=== PATIENT | male | born 1975 | race Caucasian/White ===

== ENCOUNTER → 2023-10-19 06:26 | Day surgery (SDC) | payer BC, SELFPAY | LOC: GI 06:26 | PROVIDERS: ATTENDING PHYSICIAN Surgery | DX: Z12.11 Encounter for screening for malignant neoplasm of colon (principal); K63.5 Polyp of colon | CPT/HCPCS: 45380; 88305 ==

== ENCOUNTER 2023-12-02 04:22 | Observation (INO) | payer BC, SELFPAY ==
[2023-12-02] VITALS (18 sets, daily range): BP systolic 106–151; BP diastolic 67–97; BMI 30.2; BMI 30.1
--- NOTE | 2023-12-02 00:34 | ED.GENMED ---
History of Present Illness
General
Chief Complaint: Abdominal Pain
Source: patient
Exam Limitations: none
Time Seen by Provider: 12/02/23 00:26
Travel History
Have you had any contact with someone who has COVID-19?: No
Do you have any symptoms of coronavirus? Fever > 100 degrees, chills, cough, shortness of breath, sore throat, loss of taste or smell, muscle aches, or headache?: No
History of Present Illness
History of Present Illness:
This is a 48 year old male that comes in with c/o epigastric pain. States that he has had this pain in the past and it is like a spasm. States that this is the worse it has been. States that as a last resort he can use Paregoric but he did not take
this. states that his mother has the same thing. States that sometimes when he vomits this settled things down. State that he made himself vomiting that this seemed to make it worse this time. States that he just can't get comfortable. Denies any
fever, chills, chest pain, SOB, nausea, vomiting, diarrhea, headache, dizziness, urinary burning.
Past History
Past History
ED Past Medical History: None; Negative Asthma, HTN, Hypercholesterolemia or NIDDM
ED Past Surgical History: Urological (vasectomy)
Social History
Tobacco: Non-smoker
Alcohol: None
Drug: None
Personal:
Living: with family
Employment: Employed
Review of Systems
Review of Systems
All Other Systems: ROS reviewed and negative except as documented in HPI and ROS
Constitutional: Reports no symptoms; Denies fever or chills
EENT: Reports no symptoms
Respiratory: Reports no symptoms; Denies cough or trouble breathing
Cardiac: Reports no symptoms; Denies chest pain
ABD/GI: Reports abdominal pain; Denies nausea, vomiting or diarrhea
: Reports no symptoms; Denies dysuria, frequency or urgency
Musculoskeletal: Reports no symptoms
Skin: Reports no symptoms
Neurological: Reports no symptoms; Denies dizzy or headache
Psychiatric: Reports no symptoms
Phy Exam
General Physical Exam
General Presentation: mild distress
General age: appears stated age
General Skin: cool and other (slightly clammy)
General Habitus: normal
General Mental: alert
General Hydration: appears well hydrated
ENT Exam
ENT Exam: TM's normal, pharynx normal and neck supple
Eye Exam
Eye Exam: EOMI
Cardiovascular Exam
Cardiovascular Exam: regular rate/rhythm, no edema, no murmur and normal peripheral pulses
Pulmonary Exam
Pulmonary Exam: lungs clear, no respiratory distress, no rales, chest non tender, no crackles, no rhonchi, no wheezing and no cough
Gastrointestinal Exam
Gastrointestinal Exam: normal bowel sounds, soft, no organomegaly, no pulsatile mass, non distended and tender (Epigastric tenderness with palpation)
Musculoskeletal Exam
Musculoskeletal Exam: full ROM and no edema
Skin Exam
Skin Exam: normal color, no rash, no petechia and other (Cool and clammy)
Psychiatric Exam
Psychiatric Exam: normal mood/affect
Course
Orders/Labs/Results
Orders:
Orders
12/02/23 00:34
Mag Hydrox/Al Hydrox/Simeth [Maalox] 30 ml Phenobarb/Hyoscy/Atropine/Scop [] 10 ml Viscous Lidocaine 2% [Xylocaine Viscous Cup] 10 ml PO NOW
Pantoprazole [Protonix IV] 40 mg IV NOW STA
12/02/23 00:41
Complete Blood Count/With Diff Urgent
Comprehensive Metabolic Panel Urgent
Lipase Urgent
Comment: ADDED
12/02/23 00:43
Mag Hydrox/Al Hydrox/Simeth [Maalox] 30 ml .ROUTE .STK-MED ONE
Phenobarb/Hyoscy/Atropine/Scop [] 10 ml .ROUTE .STK-MED ONE
Viscous Lidocaine 2% [Xylocaine Viscous Cup] 15 ml .ROUTE .STK-MED ONE
12/02/23 00:55
HYDROmorphone [Dilaudid] 0.5 mg IV NOW STA
12/02/23 00:57
Add On- LAB Urgent
Tests Added?: Lipase
12/02/23 01:50
US Abdomen Complete/Upper Urgent
Comment:
Reason For Exam: Epigastric pain
Abnormal Lab Results
12/02/23
00:41
MCH 31.4 H pg
(27.0-31.0)
Abs Immat Gran (auto) 0.1 H 10^3/uL
(0-0.05)
Absolute Monos (auto) 0.9 H 10^3/uL
(0.1-0.6)
Immature Gran % 0.6 H %
(0-0.5)
Glucose 105 H mg/dl
(70-99)
Calcium 10.4 H mg/dl
(8.4-10.2)
ALT 108 H U/L
(0-50)
12/02/23 00:41
12/02/23 00:41
Glucose nonfasting. Calcium very sightly elevated. ALT elevation Lipase normal at 124
Vital Signs
Initial and Last Documented VS:
Initial Vital Signs
Temp Pulse Resp BP Pulse Ox
97.5 F 96 20 139/95 100
12/02/23 00:22 12/02/23 00:22 12/02/23 00:22 12/02/23 00:22 12/02/23 00:22
Last Documented Vital Signs
Temp Pulse Resp BP Pulse Ox
97.5 F 96 20 148/97 98
12/02/23 00:22 12/02/23 00:22 12/02/23 00:22 12/02/23 00:39 12/02/23 02:23
MDM/Problems Addressed
Differential Diagnosis Includes:
Stomach spasm, GERD
MDM/Problems Addressed:
This is a 48 year old male that comes in with c/o epigastric discomfort. States that he has had this before and it is like a spasm. States that his mother also has this and usually vomiting helps. States that he tried to make himself vomiting but
this made things worse.
Will give Green Grabber and Protonix
Back into see patient. Explained that his blood work shows that his ALT is elevated. US shows that he had gallstones stuck in the neck of the gallbladder. This is most likely causing patient pain. Will admit for further evaluation. Hospitalist
notified.
Chronic conditions affecting care:
GERD,
Acute Exacerbation and/or Progression of Chronic Illness:
GERD, Spams
*Radiology
Radiology exam reviewed: radiology read reviewed (US night hawk- Cholelithiasis without clear secondary findings to suggest cholecystitis. Few small gallstones in the gallbladder neck which could be impated (do not move with change in patient
position). Gallbladder is distended measuring approximately 10 X4cm. No appreciable gallbladder wall ), all reviewed NAD by ED Provider (US cont- or pericholecystic fluid. Negative sonographic Zhou's sign per report. No ductal dilation. CBD 4mm in
diameter which is within normal limits. Visualized pancreas appears normal. Diffuse increased hepatic echogenicity, suggesting steatosis. Bilateral kidney appear normal. Spleen appears ) and other (US cont- Spleen appears normal. No appreciable
free fluid)
*Pulse Oximetry
Patient hypoxic: no
*EKG
Interpreted by ED Provider?: NA
Rate: EKG- N/A
*Cardiothoracic Physiotherapist Interpretation
Rate: Cardiothoracic Physiotherapist- N/A
*Critical Care Note
Total Time (30-74mins, 75-104mins- exclusive of procedures): Not Applicable
ED Attending Note
-
Portions of this chart may have been created with voice recognition software.� Occasional wrong word or��sound alike� substitutions may have occurred due to the inherent limitations of voice recognition software.
Discharge Plan
Departure
Patient Disposition: Admit
Date of Disposition: 12/02/23
Time of Disposition: 02:41
Admit to: Med/Surg
Presentation/result/management discussed w/ accepting MD/DO: Hospitalist
Patient with high blood pressure during this ER visit?: Yes
Condition: Good
Discharge Problem:
Abdominal pain, Cholelithiasis
Prescriptions:
No Action
No Current Medications
0
Referrals:
Ambrosio Church DO [Family Provider] -
Interventions
Interventions:
*Risk Screen - Suicide Last Done: 12/02/23 00:22
*Neglect/Abuse Screening Last Done: 12/02/23 00:22
ED- Fall Risk Assessment Last Done: 12/02/23 01:00
*ED COVID-19 Vaccine History Last Done: 12/02/23 00:22
MO-Xczcqe-Gbgejxfnnm Assessment Last Done: 12/02/23 01:00
Discharge Date and Time
Print Language: FAROESE
[2023-12-02] MEDS: PROTONIX IV 40 MG IV (00:45)
[2023-12-02] MEDS: MAALOX 50 PO (00:45)
[2023-12-02 00:49] LABS: % Basophils 0.5 % (0-2); % Eosinophils 2.5 % (0-6); % Immature Granulocytes 0.6 % (0-0.5); % Lymphocytes 26.6 % (20.5-51.1); % Monocytes 8.7 % (1.7-9.3); % Neutrophils 61.1 % (42.2-75.2); Absolute Basophils 0.1 10^3/uL (0-0.2); Absolute Eosinophils 0.3 10^3/uL (0-0.7); Absolute Immature Granulocytes 0.1 10^3/uL (0-0.05); Absolute Lymphocytes 2.7 10^3/uL (1.2-3.4); Absolute Monocytes 0.9 10^3/uL (0.1-0.6); Absolute Neutrophils 6.1 10^3/uL (1.4-6.5); Hematocrit 43.9 % (39.0-52.0); Hemoglobin 15.8 g/dL (13.0-18.0); Mean Corpuscular Hgb 31.4 pg (27.0-31.0); Mean Corpuscular Volume 87.3 fL (80.0-94.0); Mean Platelet Volume 9.7 fL (7.4-10.4); Nucleated Red Blood Cells % 0 % (-); Platelet Count 283 10^3/uL (130-400); Red Blood Cell Count 5.03 10^6/uL (4.70-6.10); Red Cell Dist. Width 13.2 % (11.5-14.5)
[2023-12-02] MEDS: DILAUDID 0.5 MG IV ×5 (01:00→23:32)
[2023-12-02 01:03] LABS: ALT (SGPT) 108 U/L (0-50); AST (SGOT) 58 U/L (17-59); Albumin 4.9 g/dl (3.5-5.0); Alkaline Phosphatase 116 U/L (38-126); Blood Urea Nitrogen 20 mg/dl (9-20); Calcium 10.4 mg/dl (8.4-10.2); Carbon Dioxide 25 mmol/L (22-30); Chloride 99 mmol/L (98-107); Glucose 105 mg/dl (70-99); Potassium 4.1 mmol/L (3.5-5.1); Sodium 137 mmol/L (135-145); Total Bilirubin 0.7 mg/dl (0.2-1.3); Total Protein 7.8 g/dl (6.3-8.2); eGFR > 60.00
[2023-12-02 01:24] LABS: Lipase 124 U/L (23-300)
[2023-12-02] MEDS: ZOSYN 50 IV ×4 (03:19→20:05)
--- NOTE | 2023-12-02 04:05 | HPS.HSE ---
Addendum entered and electronically signed by Tanvir See MD 12/02/23 08:10:
Patient seen and examined.
Patient is a 48 yo M with a PMH of obesity and s/p vasectomy who presents with <48 hrs epigastric and RIGHT back pain. Mr. Howard states that his symptoms began on Wednesday evening after a meal of grilled chicken and vegetables. He has had
similar prior attacks on an infrequent basis (last memorable attack was in the summer 2022). He has been able to manage these attacks at home with bowel rest and occasional self-induced vomiting. These tactics did not improve his symptoms and his
pain persisted into Wednesday and worsened after eating white pizza on Wednesday evening prompting presentation to the ED. Currently his pain has improved, however, he continues to have a throbbing sensation in his back. No fevers or chills. No
nausea, 1 episode of self-induced vomiting in an attempt to alleviate his symptoms. He denies any jaundice, pale stools, or tea colored urine. He previously followed with Dr. Blair for prior attacks of epigastric discomfort. Previously thought
that these episodes were related to a hiatal hernia and possibly reflux. He underwent a CT scan, ultrasound, and HIDA in 2018, which demonstrated cholelithiasis without any evidence of cholecystitis. He denies any recent attacks of pain within the
past few weeks to months. Family history notable for a mother with symptomatic cholelithiasis, who has not had an attack in years and is impacting his his decision on proceeding with cholecystectomy.
Gen: NAD
Abd: soft, minimal tenderness in RUQ, negative Zhou's sign, ND, non-peritoneal
Labs and imaging were reviewed. US final read pending.
Patient is a 48 yo M p/w severe biliary colic versus acute cholecystitis
The natural history and pathophysiology of biliary and stone disease was discussed. Anatomy was reviewed. Workup thus far including labs and imaging were reviewed. Options for management including medical management with a low-fat diet versus
surgical management with cholecystectomy were considered and discussed. Patient is somewhat apprehensive in proceeding with cholecystectomy given his mother's experience (no symptoms in years). We discussed that there are no good treatment options
for removal of stones only. We discussed that a low-fat diet is the best nonsurgical option, but is not a guarantee that he will not continue to have future attacks. Recommend cholecystectomy.
Tentative plan for a laparoscopic cholecystectomy with possible cholangiogram. The procedure itself, as well as the risks, benefits, and alternatives was discussed. Specifically, we discussed the risks of bleeding, infection, injury to surrounding
structures (bowel, bile ducts), CBD injury, need for open procedure. Typical postprocedural recovery including pain management, time off from work, and the 10 to 20% risk of fluctuations in GI function was discussed. All questions answered.
Consent signed.
-- Laparoscopic cholecystectomy possible IOC
-- NPO, IVF
-- Zosyn
-- Pain control: Tylenol, IV Dilaudid PRN
Original Note:
Family Physician
-
Family Physician: Ambrosio Church
Chief Complaint
-
abdominal pain
History of Present Illness
Patient is a 48-year-old male with no significant past medical history. Patient presented to [facility] ED for evaluation of abdominal pain, radiating to back that was unrelieved at home and became significantly worse after eating dinner. Patient
reports that he has dealt with 'stomach attacks' for years that he thought was just indigestion with no findings from GI workup years ago. Patient will generally get 'attack' to subside by doing/utilizing Tums, cold water to drink, positioning and
forced emesis. He said this attack started Wednesday in the epigastric area and was unrelieved with his normal routine. Today pain progressively got worse and became unbearable following dinner, in which he ate 'white pizza and drank a coke.' Patient
stated that the pain started to radiate to his back and was unable to get comfortable to go to bed, so elected to come get evaluated. He denies fever, chills, dyspnea, cough, chest pain, palpitations, constipation, diarrhea, or urinary symptoms.
Medical History
Past Medical History
Past Medical History: Reports None
Past Surgical History: Reports Other (vasectomy 2015)
Social History
Tobacco: Non-smoker
Alcohol: None
Drug: None
Personal:
Living: With Family
Employment: Employed
Family History
Family History: Not pertinent
Allergies / Home Medications
Allergies reflects when Allergies were last updated in [facility].
Home Medications with original date entered in [facility]
Allergy/Medication List:
Allergies
Allergy/AdvReac Type Severity Reaction Status Date / Time
No Known Allergies Allergy Verified 12/02/23 00:22
Home Medications Table - record
�Medication �Instructions �Recorded �Confirmed
No Meds [No Current Medications] 12/02/23 12/02/23
Review of Systems
-
History Source: Patient
A 12 point ROS was completed and negative except as noted: Yes
Constitutional: Reports Sleep Disturbance
EENT: Reports No Symptoms
Respiratory: Reports No Symptoms
Cardiac: Reports No Symptoms
Abdomen/GI: Reports Abdominal Pain and Vomiting (forced emesis)
: Reports No Symptoms
Musculoskeletal: Reports No Symptoms
Skin: Reports No Symptoms
Neurological: Reports No Symptoms
Endocrine: Reports No Symptoms
Hematologic/Lymphatic: Reports No Symptoms
Psych: Reports Calm and Anxiety
Physical Exam
Vital Signs
Vital Signs
Temp Pulse Resp BP Pulse Ox
97.5 F 96 20 106/76 98
12/02/23 00:22 12/02/23 00:22 12/02/23 00:22 12/02/23 03:22 12/02/23 03:22
Physical Exam
General: Well Developed, Well Nourished and Conversant
HEENT: NormoCephalic, Moist mucous membranes, PERRLA, [place] Conjunctivae, Nose Appears Normal and Ears Appear Normal
Respiratory: Clear and Non Labored Respirations
Cardiac: S1/S2 and Regular Rhythm
Breast: Deferred by me
GI: Soft, Non Distended, Normal Bowel Sounds and Tender
Rectal: Deferred by Provider
Genito-urinary: Deferred by me
Musculoskeletal: No Clubbing, No Cyanosis and No Edema
Skin: Warm and Dry
Neuro: Awake and AO x 3
Hematologic/Lymphatic: No Lymphadenopathy
Psych: Calm, Intact Judgment/Insight and Anxious
Laboratory Results
-
12/02/23 00:41
12/02/23 00:41
Laboratory Results
Total Bilirubin 0.7 mg/dl (0.2-1.3) 12/02/23 00:41
AST 58 U/L (17-59) 12/02/23 00:41
ALT 108 U/L (0-50) H 12/02/23 00:41
Alkaline Phosphatase 116 U/L (38-126) 12/02/23 00:41
Lipase 124 U/L (23-300) 12/02/23 00:41
Data Reviewed
-
Ultrasound: Report Reviewed by me and Discussed with Physician
Lab Data: Labs Reviewed by me and Discussed with Physician
Impression/Plan
-
Patient is a 48-year-old male with no significant past medical history. Patient presented to [facility] ED for evaluation of abdominal pain, radiating to back that was unrelieved at home and became significantly worse after eating dinner. Patient
reports that he has dealt with 'stomach attacks' for years that he thought was just indigestion with no findings from GI workup years ago. Patient will generally get 'attack' to subside by doing/utilizing Tums, cold water to drink, positioning and
forced emesis. He said this attack started Wednesday in the epigastric area and was unrelieved with his normal routine. Today pain progressively got worse and became unbearable following dinner, in which he ate 'white pizza and drank a coke.' Patient
stated that the pain started to radiate to his back and was unable to get comfortable to go to bed, so elected to come get evaluated. He denies fever, chills, dyspnea, cough, chest pain, palpitations, constipation, diarrhea, or urinary symptoms.
PLAN:
# Cholelithiasis
- Admit to observation under Dr. See service
- Abdominal US - 'Cholelithiasis without clear secondary findings to suggest cholecystitis.'
- Zosyn
- Pain regimen
- antiemetics
- IVF
NPO
Full Code
DVT Prophylaxis: SCDs
[2023-12-02] MEDS: NSS 1000 IV ×2 (04:40→16:59)
--- NOTE | 2023-12-02 10:49 | W.SUR.PREOP ---
Pre-Operative Surgical Note
-
I have examined this patient prior to the performance of the scheduled procedure.
The patient's condition is unchanged from the time of the current History and
Physical and the patient is able to undergo the scheduled procedure.
--- NOTE | 2023-12-02 16:36 | W.IMMPOSTOP ---
Surgical Immed Post Op Note
-
Primary Surgeon: Isaías Lucia MD
Assisting Surgeon: None
Pre-op Diagnosis: Acute cholecystitis
Post-op Diagnosis: Same
Procedure Performed: Laparoscopic cholecystectomy
Anesthesia Type: General
Specimen / Cultures: Gallbladder and contents
Estimated Blood Loss: 3 cc
Complications: None
Operative Findings: Acute cholecystitis with inflamed cystic triangle. Gallbladder fairly distended with hydrops. Fairly prominent cystic artery identified and ligated after obtaining a critical view of safety. Cystic duct diminutive in
comparison, divided with 5 mm clips and stump reinforced with a 0 PDS Endoloop.
POST OP PLAN:
Imaging: None
Labs: Routine AM
Diet: Advance to Regular as tolerated
Analgesia: Tylenol 650mg q6 Ana Cristina, Cassie 5mg q6 PRN, Dilaudid 0.5mg q2h PRN
Neuro/vascular checks: q4h
AC/AP: Hold Therapeutic AC, Ok for DVT PPx
Activity: Ad Argelia
Wound/Incisions/Drains: Routine
Abx: Will continue x 1 dose. No antibiotics on discharge.
Dispo: RNF, anticipate discharge home later tonight versus tomorrow.
--- NOTE | 2023-12-02 16:38 | OR.RPT ---
Addendum entered and electronically signed by Isaías Lucia MD 12/15/23 11:25:
Procedure should read: laparoscopic cholecystectomy. (No cholangiogram was performed).
Original Note:
Operative Report
Operative Report
Patient Name: Juanito Howard
: 1975
Date of Operation: 12/02/2023
Preoperative Diagnosis: Acute cholecystitis
Postoperative Diagnosis: Same
Procedure(s):
Laparoscopic Cholecystectomy with Cholangiogram
Surgeon(s):
Dr. Lucia
Stationary Engineer(s):
MORALES Ramon
Anesthesia: General
Estimated Blood Loss: 3 cc
Urine Output: None
Drains/Lines/Implants: None
Specimens:
1. Gallbladder and contents
HPI/Surgical Indications:
This is a 48-year-old male who presents with 2 days of abdominal pain. Exam, labs and imaging are consistent with early acute cholecystitis. Risks/Benefits/Alternatives were discussed at length, and the patient agreed to proceed with surgery.
Findings:
The patient was noted to have mild gallbladder inflammation with edema in the cystic triangle. A Critical View of Safety was obtained. No cholangiogram performed. Cystic duct divided with 5 mm clips and stump for reinforced with a 0 PDS Endoloop
Procedure Description:
The patient was brought to the Operating Room and placed in the supine position with one arm tucked. Following uneventful induction of general endotracheal anesthesia, an orogastric tube was placed. The abdomen was prepped and draped in the usual
sterile fashion. A timeout was performed confirming the procedure, consent, and that IV antibiotics were infused and sequential compression devices were confirmed to be on. The abdomen was entered using a left subcostal Veress technique followed by
a 5 mm right upper quadrant Optiview trocar. Pneumoperitoneum to 15 mmHg pressure was obtained without difficulty and we confirmed that no injury had occurred during our entry. The patient was positioned in reverse Trendelenberg and rotated with the
right side up slightly. Two 5mm trocars were then placed along the right subcostal margin, and a 12 mm port in the epigastrium. A locking grasping forceps was placed on the fundus of the gallbladder where it was then retracted cephalad and to the
right. Using appropriate grasping instruments, the peritoneum overlying the triangle of Calot was incised and extended superiorly on both the anterior and posterior gallbladder campos. The cystic triangle was inflamed and edematous. The
infundibulum was dissected off the cystic plate. The cystic triangle was dissected until a critical view of safety was achieved. The cystic artery was quite large but medialized, dissected and controlled with 2 proximal clips and 1 distal. The
cystic duct/gallbladder junction in turn was identified, dissected circumferentially and ligated with two 5 mm clips and divided in between. The stump was then reinforced with a 0 PDS Endoloop. After ensuring both the artery and duct were divided,
the gallbladder was freed from the liver using electrocautery. There was no spillage of bile or stones. The gallbladder bed was inspected and excellent hemostasis was obtained. The gallbladder was extracted through the 12 mm trocar site using an
endocatch bag. In order to fit through the port, the gallbladder was intentionally perforated and bile tinged hydrops was suctioned out. The abdomen was again irrigated and excellent hemostasis was assured. All remaining trocars were then removed
and the pneumoperitoneum was evacuated. The 12 mm trocar site was closed using 0 PDS suture. All trocar sites were closed at the skin level using 4-0 Monocryl followed by Dermabond. Overall, the patient tolerated the procedure well and was taken
to the Recovery Room postoperatively in stable condition.
I was the attending physician and performed the procedure with assistance from the SCOOPING MACHINE TENDER above. I was present for all portions of the case
Isaías Lucia MD
[2023-12-02] MEDS: DILAUDID 0.25 MG IV ×2 (16:39→16:55)
--- NOTE | 2023-12-02 17:47 | PTCARENOTE ---
received from PACU , awake and alert, some ABD pain rating 8/10, repositioned self in bed with some relief reported, pain 5/10 at tolerable level. denies nausea. call chapin in reach, aware of nurse availability. plan of care on going.
[2023-12-02] MEDS: TYLENOL 650 MG PO (18:53)
[2023-12-03 00:45] VITALS: BP 129/67
[2023-12-03] MEDS: ZOSYN 50 IV ×2 (01:57→07:59)
[2023-12-03] MEDS: NSS 1000 IV (01:57)
[2023-12-03] MEDS: DILAUDID 0.5 MG IV (02:46)
[2023-12-03 04:45] VITALS: BP 122/71
[2023-12-03] MEDS: ROXICODONE 5 MG PO (07:57)
[2023-12-03 08:02] VITALS: BP 129/69
--- NOTE | 2023-12-03 10:08 | W.PN.GS2 ---
Addendum entered and electronically signed by Washington Gillette MD 12/03/23 10:43:
I saw and examined the patient.
The Director [facility]'s note was reviewed and I agree with the note.
Comment: Doing well POD1, typical post-op abd soreness, exam approp, ambulating. OK for DC home
Original Note:
Today's Communication / Plan
-
discharge planning
Assessment / Plan
-
48 yo male who presented with ACC now POD #1 lap migue
following expected course
AFVSS
--Continue regular diet
--Reviewed incisional care
--Analgesics prn
--Dispo planning
Subjective Data
-
Date of Service: December 03, 2023
Patient seen and examined at bedside with Dr. Gillette. Denies n/v. Some bloating after meal but tolerating diet well otherwise. Minimal incisional discomfort, some right sided discomfort but improving.
Objective Data
-
Intake and Output
12/02/23 12/03/23 12/04/23
06:59 06:59 06:59
Intake Total 1080 / 1080
Output Total 1050 / 1050
Balance 30
Intake:
Oral fluids 980 / 980
IV fluids (Total) 100 / 100
nss 100 / 100
Output:
Urine, Voided 1050 / 1050
Vital Signs
Temp Pulse Resp BP Pulse Ox
98.1 F 81 18 129/69 96
12/03/23 08:02 12/03/23 08:02 12/03/23 08:02 12/03/23 08:02 12/03/23 08:02
Lab Results
12/02/23 00:41
12/02/23 00:41
Calcium 10.4 mg/dl (8.4-10.2) H 12/02/23 00:41
Total Bilirubin 0.7 mg/dl (0.2-1.3) 12/02/23 00:41
AST 58 U/L (17-59) 12/02/23 00:41
ALT 108 U/L (0-50) H 12/02/23 00:41
Alkaline Phosphatase 116 U/L (38-126) 12/02/23 00:41
Total Protein 7.8 g/dl (6.3-8.2) 12/02/23 00:41
Albumin 4.9 g/dl (3.5-5.0) 12/02/23 00:41
Physical Exam
-
NAD
ABD soft, nt, nd
Incisions well approximated with intact glue
--- NOTE | 2023-12-03 10:26 | W.DCSUMMARY ---
Discharge Summary
Discharge Data
Date of Admission: 12/02/23
Date of Discharge: 12/03/23
-
Pending Results: No
Hospital Course
Mr. Howard presented through the ED with epigastric and right sided back pain for <48 hours beginning after a high fat meal. US findings consistent with early cholecystitis. Given exam and imaging findings, he was taken to the OR for laparoscopic
cholecystectomy with cholangiogram. He tolerated the procedure well with good pain control with oral agents on date of discharge. He was discharged to home with spouse with outpatient follow up planned in the coming weeks.
Discharge Plan
-
Patient Disposition: Home (Routine Discharge)
Discharge Diagnosis/Procedures: Acute cholecystitis. Laparoscopic cholecystectomy.
Condition: Good
Diet: No restrictions
Activity: No strenuous activity
Driving Restrictions: As prior to admission
Bathing Restrictions: OK to Shower
Activity Restrictions/Additional Instructions:
Instructions following Laparoscopic Cholecystectomy
Please call [phone] if you have any questions or concerns after your surgery.
Wound Care:
Your incisions are covered with skin glue which will come off on its own in 5-10 days.
It is ok to shower the day after your surgery. Do not scrub the incisions, let soap and water wash over them and pat dry.
� Bruising around your incisions is normal.
� Using ice packs will help minimize this swelling.
� No swimming or soaking incisions for 1 week.
� Your stitches will dissolve and do not need to be removed.
Urinary retention:
If you are unable to urinate 6-8 hours after your surgery, please call [phone] to discuss further management.
Activity:
No heavy lifting more than 15 pounds for the next 3 weeks, then you may gradually lift heavier objects as tolerated by discomfort. Otherwise activity as tolerated by your comfort level.
Pain Management:
Use Tylenol, ibuprofen and ice packs to treat your pain.
� You may take 650 milligrams of Tylenol (Max 3 grams per day) every 6 hours, and 600 mg of ibuprofen also every 6 hours. (you can alternate them every 3 hours)
� You may use an ice pack to your incision as needed.
� If you still have pain not controlled by these measures, take your prescription pain medication as prescribed.
Medications:
You may resume your home medications.
Bowel Medications:
Prescription pain medication can make you constipated. If you take this medication, also take colace 100 mg twice daily (this is over the counter). If this is not sufficient, you may take Miralax (polyethylene glycol) to help move your bowels.
Diet:
After your procedure, there are no dietary restrictions. However, you may notice some loose stools with fatty meals for up to 4 weeks after surgery. If this is the case, please adjust to a low fat diet as needed.
Driving restrictions:
No driving if you are taking prescription pain medication or if you think your normal reaction time and attentiveness has been slowed by your surgery.
Things to Look out for:
Worsening Abdominal pain, fever, jaundice, redness or drainage from incision
Call Doctor for:
Please call if you notice worsening redness or drainage from incision(s) lasting longer than 5 days after your surgery, any foul-smelling drainage from the incision, pain not controlled by pain medications, persistent nausea and vomiting, or for any
fevers greater than 101.3 F. The number for questions/concerns is [phone]
Follow-up:
A follow-up appointment will be scheduled with your surgeon in 3-4 weeks. Please call prior to your appointment if you have any questions or concerns. [phone]
Referrals:
Isaías Lucia MD [Active] -
Ambrosio Church DO [Family Provider] -
Prescriptions:
New
acetaminophen [acetaminophen] 325 mg tablet
650 mg PO Q6HPRN PRN (Reason: mild pain) Qty: 14 0RF
tramadol 50 mg tablet
25 mg PO Q6HPRN PRN (Reason: severe pain/breakthrough pain) Qty: 8 0RF
ibuprofen 600 mg tablet
600 mg PO Q6H PRN (Reason: pain) Qty: 14 0RF
Discharge Orders:
Discharge Patient (As Directed); Ordered 12/03/23
Ordered By: Sanjuanita Burgos
Discharge Date and Time
Print Language: TELUGU
--- NOTE | 2023-12-03 11:14 | CM ---
Alert awake oriented patient who lives with Deb and sons in a 2 story home with 1 steps to enter and 14 steps to bed/bathroom. He is independent in driving working and and ADLs.Offered VN he declined. will drive him home.Observation
letter given signed on chart.
No adaptive devices.
No Hx of VN /SNF
Pharmacy [facility]
PCP Dr Church
PLAN Home no needs
== END 2023-12-03 11:31 | disposition home or self-care (01) ==
LOC: 4 EAST ACU 04:22
PROVIDERS: Clinical Nurse Specialist Family Health; ADMITTING PHYSICIAN Surgery; EMERGENCY PHYSICIAN Emergency Medicine; FAMILY PHYSICIAN Internal Medicine
DX: K81.1 Chronic cholecystitis (principal)
CPT/HCPCS: 47563; 88304; 76700; 80053; 83690; 85025; 96365; 96375; 96376; 99285; G0378

== ENCOUNTER → 2023-12-23 08:16 | Outpatient (REF) | payer BC, SELFPAY | LOC: MRI 08:16 | PROVIDERS: ATTENDING PHYSICIAN Surgery; FAMILY PHYSICIAN Internal Medicine | DX: Z90.49 Acquired absence of other specified parts of digestive tract (principal) | CPT/HCPCS: 74181 ==

== ENCOUNTER → 2024-09-01 15:16 | Outpatient (REF) | payer BC, SELFPAY | LOC: UCDH 15:16 | PROVIDERS: ATTENDING PHYSICIAN Emergency Medicine; FAMILY PHYSICIAN Internal Medicine | DX: J98.9 Respiratory disorder, unspecified (principal) | CPT/HCPCS: 71046 ==

== ENCOUNTER → 2025-09-03 10:21 | Outpatient (REF) | payer BC, SELFPAY | LOC: HWRAD 10:21 | PROVIDERS: ATTENDING PHYSICIAN Chiropractor; FAMILY PHYSICIAN Internal Medicine | DX: M53.3 Sacrococcygeal disorders, not elsewhere classified (principal) | CPT/HCPCS: 72220 ==